=== PATIENT | female | born 1945 | race Caucasian/White ===

== ENCOUNTER 2016-06-16 06:29 | Emergency (ER) | payer MEDICARE, OTHER ==
[2016-06-16 06:41] VITALS: BP 158/86
[2016-06-16] MEDS ORDERED: AMOXICILLIN TRIHYDRATE 250 MG CAPSULE PO ONE (06:44)
[2016-06-16] MEDS ORDERED: METHYLPREDNISOLONE SOD SUCC/PF 125 MG/2 ML VIAL IM ONE (06:44)
[2016-06-16] MEDS ORDERED: AMOXICILLIN TRIHYDRATE 250 MG CAPSULE ONE (06:46)
[2016-06-16] MEDS ORDERED: METHYLPREDNISOLONE SOD SUCC/PF 125 MG/2 ML VIAL ONE (06:47)
--- NOTE | 2016-06-16 06:56 | ERNOTE ---
[facility] Date of Service: 06/16/16 Presenting Symptoms: other - sore throat Time Seen by Provider: 06/16/16 06:44 Source: patient Exam Limitations: no limitations - Immun/Allergies/Home Medications Immunizations: IMMUNIZATION HX Immunizations Up to Date Yes History of Influenza Vaccine Yes Hx Pneumococcal Vaccination Yes Allergies/Adverse Reactions: Allergies Allergy/AdvReac Type Severity Reaction Status Date / Time nickel Allergy Verified 01/04/15 17:59 Home Medications: HOME MEDICATIONS Atorvastatin Calcium [Lipitor] 40 mg PO DAILY 04/18/16 [Last Taken Unknown] Furosemide [Lasix] 20 mg PO DAILY 04/18/16 [Last Taken Unknown] Metoprolol Succinate [Toprol Xl] 50 mg PO BID 04/18/16 [Last Taken Unknown] Amoxicillin Trihydrate [Amoxil] 875 mg PO BID #20 tab 06/16/16 [Last Taken Unknown] Fluticasone Propionate [Flonase] 2 spray NS DAILY #1 inhaler 06/16/16 [Last Taken Unknown] Loratadine [Claritin] 10 mg PO DAILY #30 cap 06/16/16 [Last Taken Unknown] - History of Present Illness Narrative: Patient comes due to sore throat Severity: Present: moderate ENT Location: Present: throat Prearrival Treatment: Present: no prearrival treatment Modifying Factors - Improves: Reports: nothing Modifying Factors - Worsens: Reports: other - swollowing Associated Symptoms - ENT: Reports: fever, voice change, sore throat. Denies: malaise, poor fluid intake, poor solid intake, cough, drooling, nasal congestion /drainage, facial pain/swelling, tooth pain, jaw swelling, change in hearing, ear drainage, headache, trauma Prior Treament: Denies: recently seen Review of Systems - Review of Systems Constitutional: Present: fever, malaise. Absent: diaphoresis, weakness, fatigue , weight loss, fussy, decreased activity level EYE: Present: no symptoms reported ENT: Present: sore throat Respiratory: Present: no symptoms reported Cardiology: Present: no symptoms reported Gastrointestinal/Abdominal: Present: no symptoms reported Genitourinary: Present: no symptoms reported Musculoskeletal: Present: no symptoms reported Skin: Present: no symptoms reported Neurological: Present: no symptoms reported Endocrine: Present: no symptoms reported Hematologic/Lymphatic: Present: no symptoms reported Psych: Present: no symptoms reported All Other Systems: All systems neg except as marked - Patient's Past Medical History Patient History - Medical: Arthritis Patient History - Cardiac/Respiratory: Hypertension, Hyperlipidemia Patient History - Cancer: No Hx of Cancer Patient History - Surgical Procedures: Hysterectomy, Total Knee Replacement, Other Patient History - Other: None LMP (females 10-50): Menopausal - Social History Living Situations: home Abuse History: No History of abuse Psych History: No pertinent hx Alcohol Use: none Drug Use: none - Immunizations Immunizations Up to Date: Yes Hx Pneumococcal Vaccination: Yes History of Influenza Vaccine: Yes Physical Exam - Physical Exam General Appearance: Present: wd/wn, alert, no apparent distress Ears, Nose, Throat: Present: hearing grossly normal, pharyngeal erythema, pharyngeal swelling. Absent: nasal congestion, sinus pain/drainage, dry mucous membranes Neck: Present: normal inspection, nontender, lymphadenopathy (R), lymphadenopathy (L) Respiratory: Present: no respiratory distress, normal breath sounds, no accessory muscle use, chest nontender, lungs clear Cardiovascular/Chest: Present: regular rate, rhythm, no murmur, normal peripheral pulses Gastrointestinal/Abdominal: Present: normal bowel sounds, nontender, nondistended, soft, no organomegaly Back Exam: Present: normal inspection, normal range of motion, no CVA tenderness , no vertebral tenderness Extremity Exam: Present: normal inspection, non-tender, no edema, normal range of motion Neurological Exam: Present: alert, oriented, normal mood/affect, no motor/ sensory deficits Skin Exam: Present: normal color, warm/dry ED Progress - Date and Time Seen: Date and Time: 06/16/16 06:49 Patient with hx of fever, no coughing, + lymphadenopathy and exudate. - Vital Signs Patient's Vital Signs:: I have reviewed the patient's vital signs. Vital Signs: Vital Signs 06/16/16 06:33 Temperature 37.2 C Pulse Rate 86 Respiratory 14 Rate Blood Pressure 158/86 O2 Sat by Pulse 95 Oximetry - Progress/Reassessment Chief Complaint: Sore Throat - Transfer of Care Expected Disposition: Discharge Plan - Plan Plan: Patient is to follow up with her PCP Departure Clinical Impression: Acute pharyngitis Qualifiers: Pharyngitis/tonsillitis etiology: unspecified etiology Qualified Code(s): J02.9 - Acute pharyngitis, unspecified - Departure Disposition: Home self-care Condition: Stable Instructions: Strep Throat, [id number] Referrals: Danial Godoy MD [Primary Care Provider] - Prescriptions: Amoxicillin Trihydrate [Amoxil] 875 mg PO BID #20 tab Fluticasone Propionate [Flonase] 2 spray NS DAILY #1 inhaler Loratadine [Claritin] 10 mg PO DAILY #30 cap
--- OUTSIDE RECORDS SUMMARY | 2016-06-16 06:56 | XMS REPORT | Continuity of Care Document ---
:1945 Author Organization [facility] [place] [address] Care Team Providers Name Role Phone Unavailable Primary Care Provider Unavailable Source Comments This disclosure is being made pursuant to the [employer] program and maynot contain all information available regarding this patient.[facility] Active Allergies and Adverse Reactions Not on File Current Medications Be aware that medications may not be up to date as of this document. Alwaysverify current medications with the patient. Not on file Active Problems Not on file Social History Tobacco Use Types Packs/Day Years Used Date Never Assessed Plan of Care Health Maintenance Due Date Last Done Comments Retired-Pertussis Vaccine Adult 1965 Retired-Tetanus Vaccine Adult 1964 Mammogram 1986 Colonoscopy 1996 Well Adult Visit 1996 Zoster Vaccine 60+ 2006 Bone Density 07/07/2011 Retired-Pneumococcal 23 Vaccine-65+ yo 07/07/2011 Retired-INFLUENZA VACCINE 12/20/2014 Results from Last 3 Months Not on file
== END 2016-06-16 06:55 | disposition home or self-care (01) ==
LOC: ER 06:29
DX: J02.9 Acute pharyngitis, unspecified (principal); I10 Essential (primary) hypertension; Z96.659 Presence of unspecified artificial knee joint

== ENCOUNTER 2016-07-19 08:08 | Emergency (ER) | payer MEDICARE, OTHER ==
--- NOTE | 2016-07-19 08:18 | ERNOTE ---
ENT [facility] Date of Service: 07/19/16 Presenting Symptoms: other - sore throat Source: patient, family Exam Limitations: no limitations - Immun/Allergies/Home Medications Immunizations: IMMUNIZATION HX Immunizations Up to Date Yes History of Influenza Vaccine Yes Hx Pneumococcal Vaccination Yes Allergies/Adverse Reactions: Allergies Allergy/AdvReac Type Severity Reaction Status Date / Time nickel Allergy Verified 07/19/16 08:16 Home Medications: HOME MEDICATIONS Atorvastatin Calcium [Lipitor] 40 mg PO DAILY 04/18/16 [Last Taken Unknown] Furosemide [Lasix] 20 mg PO DAILY 04/18/16 [Last Taken Unknown] Metoprolol Succinate [Toprol Xl] 50 mg PO BID 04/18/16 [Last Taken Unknown] Amoxicillin Trihydrate [Amoxil] 875 mg PO BID #20 tab 06/16/16 [Last Taken Unknown] Fluticasone Propionate [Flonase] 2 spray NS DAILY #1 inhaler 06/16/16 [Last Taken Unknown] Loratadine [Claritin] 10 mg PO DAILY #30 cap 06/16/16 [Last Taken Unknown] Clarithromycin [Biaxin] 500 mg PO BID #28 tablet 07/19/16 [Last Taken Unknown] - History of Present Illness Narrative: Returns with a sore throat once again. She was seen here several weeks ago put on a trial of amoxicillin 875 twice a day and got better and would see her family doctor, that juncture the family physician thought that it was possibly viral and sent her home. He was again with recurrent sore throat and somewhat difficult swallowing because of the soreness. Severity: Present: moderate ENT Location: Present: throat Prearrival Treatment: Present: prescription meds Associated Symptoms - ENT: Reports: sore throat Review of Systems - Review of Systems Constitutional: Present: See HPI EYE: Present: no symptoms reported ENT: Present: sore throat Respiratory: Present: no symptoms reported Cardiology: Present: no symptoms reported Gastrointestinal/Abdominal: Present: no symptoms reported Genitourinary: Present: no symptoms reported Musculoskeletal: Present: no symptoms reported Skin: Present: no symptoms reported Neurological: Present: no symptoms reported Endocrine: Present: no symptoms reported Hematologic/Lymphatic: Present: no symptoms reported Psych: Present: no symptoms reported - Patient's Past Medical History Patient History - Medical: Arthritis Patient History - Cardiac/Respiratory: Hypertension, Hyperlipidemia Patient History - Cancer: No Hx of Cancer Patient History - Surgical Procedures: Hysterectomy, Total Knee Replacement, Other Patient History - Other: None - Social History Living Situations: alone Abuse History: No History of abuse Psych History: No pertinent hx Smoking Status: Never smoker Alcohol Use: none Drug Use: none - Immunizations Immunizations Up to Date: Yes Hx Pneumococcal Vaccination: Yes History of Influenza Vaccine: Yes Physical Exam - Physical Exam General Appearance: Present: wd/wn, alert, moderate distress Eye Exam: Normal inspection: bilateral, PERRL: bilateral Ears, Nose, Throat: Present: normal ENT inspection, pharyngeal erythema Neck: Present: normal inspection, nontender Respiratory: Present: no respiratory distress, normal breath sounds, no accessory muscle use, chest nontender, lungs clear Cardiovascular/Chest: Present: regular rate, rhythm, no murmur, normal peripheral pulses Gastrointestinal/Abdominal: Present: normal bowel sounds, nontender, nondistended, soft, no organomegaly Rectal Exam: Present: deferred Back Exam: Present: normal inspection, normal range of motion Extremity Exam: Present: normal inspection, non-tender, no edema, normal range of motion Neurological Exam: Present: alert, oriented, normal mood/affect Skin Exam: Present: normal color, warm/dry Lymphatic Exam: Present: other - anterior cervical lymph nodes ED Progress - Results and Orders Patient's Lab Results:: I have reviewed the patient's lab results. - Vital Signs Patient's Vital Signs:: I have reviewed the patient's vital signs. Vital Signs: Vital Signs 07/19/16 08:12 Temperature 36.0 C L Pulse Rate 60 Respiratory 16 Rate Blood Pressure 174/75 O2 Sat by Pulse 97 Oximetry - Progress/Reassessment Chief Complaint: Sore Throat Progress:: Unchanged Plan - Plan Plan: Unclear etiology for the recurrent sore throat. Pt did get better on the Amoxil , but then relapsed. Possible mycoplasmal origin. Will try a course of Biaxin and have her F/U with her F/P in 1-2 weeks. Departure Clinical Impression: Acute pharyngitis Qualifiers: Pharyngitis/tonsillitis etiology: unspecified etiology Qualified Code(s): J02.9 - Acute pharyngitis, unspecified - Departure Disposition: Home self-care Condition: Good Instructions: Pharyngitis, [id number] Referrals: Danial Godoy MD [Primary Care Provider] - Prescriptions: Clarithromycin [Biaxin] 500 mg PO BID #28 tablet
[2016-07-19] MEDS ORDERED: predniSONE 20 MG TABLET PO ONE (08:33)
--- OUTSIDE RECORDS SUMMARY | 2016-07-19 08:47 | XMS REPORT | Continuity of Care Document ---
:1945 Author Organization [facility] [place] [address] Care Team Providers Name Role Phone Unavailable Primary Care Provider Unavailable Source Comments This disclosure is being made pursuant to the [employer] program and maynot contain all information available regarding this patient.[facility] Active Allergies and Adverse Reactions Not on [...]
[2016-07-19] MEDS ORDERED: predniSONE 20 MG TABLET ONE (08:48)
[2016-07-19 08:56] VITALS: BP 164/68
== END 2016-07-19 08:56 | disposition home or self-care (01) ==
LOC: ER 08:08
DX: J02.9 Acute pharyngitis, unspecified (principal); I10 Essential (primary) hypertension; E78.5 Hyperlipidemia, unspecified